=== PATIENT | female | born 1975 | race Caucasian/White ===

== ENCOUNTER 2017-06-25 16:13 | Emergency (ER) | payer SELFPAY ==
[2017-06-25 16:14] VITALS: BP 116/75; PULSE 91; RESP 16; TEMP 36.6; O2SAT 99; BMI 24.9
--- NOTE | 2017-06-25 16:36 | ED.VISSUMM ---
- ER Visit Summary Date of Service: 06/25/17 Chief Complaint: Left knee pain History of Present Illness: The patient is a 42 F presenting with left knee pain. She states this is a chronic issue that has been ongoing for the past 4 years. She states she initially injured her knee playing [employer]. She states she pivoted and has had pain ever since for the last 4 years. She was previously taking gabapentin 600 mg twice daily. She has ran out of this medication last night. She is now taking Aleve with some improvement. Denies new injury. Denies fever or other complaints. Physical Examination: Vitals are stable. Patient is afebrile. Alert no acute distress. HEENT exam is unremarkable. Lungs are clear and equal bilaterally. Heart is regular rate and rhythm. Extremities left knee tenderness diffusely, AFROM. No effusion. No erythema or warmth. NVID. Skin is warm and dry. Remainder of exam is unremarkable. Emergency Department Course and Treatment: Patient is given Toradol IM and ice pack. Left knee x-ray shows no acute process. She is able to ambulate in the emergency department. She is given a prescription for gabapentin. She is advised to follow-up with Dr. Tamayo her primary care physician. Advised return to ED if worsening complaints. Disposition: Discharge home Impression: Acute on chronic left knee pain This note was generated with OpenAir dictation software. It may contain incorrect words, spelling, and punctuation that were not noted in review of the chart prior to signing ED Disposition - Plan for ED Patient: Chief Complaint: Lower Extremity Injury Referrals: Jesse Tamayo MD [Primary Care Provider] -
--- NOTE | 2017-06-25 16:41 | ED.DCSUM_ITS ---
- ER Visit Summary Date of Service: 06/25/17 Chief Complaint: Left knee pain History of Present Illness: The patient is a 42 F presenting with left knee pain. She states this is a chronic issue that has been ongoing for the past 4 years. She states she initially injured her knee playing [employer]. She states she pivoted and has had pain ever since for the last 4 years. She was previously taking gabapentin 600 mg twice daily. She has ran out of this medication last night. She is now taking Aleve with some improvement. Denies new injury. Denies fever or other complaints. Physical Examination: Vitals are stable. Patient is afebrile. Alert no acute distress. HEENT exam is unremarkable. Lungs are clear and equal bilaterally. Heart is regular rate and rhythm. Extremities left knee tenderness diffusely, AFROM. No effusion. No erythema or warmth. NVID. Skin is warm and dry. Remainder of exam is unremarkable. Emergency Department Course and Treatment: Patient is given Toradol IM and ice pack. Left knee x-ray shows no acute process. She is able to ambulate in the emergency department. She is given a prescription for gabapentin. She is advised to follow-up with Dr. Tamayo her primary care physician. Advised return to ED if worsening complaints. Disposition: Discharge home Impression: Acute on chronic left knee pain This note was generated with Nu-Pulse dictation software. It may contain incorrect words, spelling, and punctuation that were not noted in review of the chart prior to signing ED Disposition - Plan for ED Patient: Chief Complaint: Lower Extremity Injury Referrals: Jesse Tamayo MD [Primary Care Provider] -
--- NOTE | 2017-06-25 16:50 | RAD_ITS ---
XR Knee Complete 4 Views or More INDICATION: CHRONIC PAIN COMPARISON: None TECHNIQUE: 4 views of the left knee FINDINGS: The osseous structures are intact and aligned. Joint spaces are preserved. RAD/Knee 4 or More Views IMPRESSION: Negative plain film examination of the left knee. at 1711 Reported and signed by: Adilene Leon MD Electronically Signed: Adilene Leon MD at 16:10 EST Tel , Service support ,
[2017-06-25] MEDS: Ketorolac 60 MG/2 ML Vial IM (17:05)
--- NOTE | 2017-06-25 17:20 | ED.DEP ---
ED Disposition - Plan for ED Patient: Chief Complaint: Lower Extremity Injury Instructions: ED Sprain Knee Prescriptions: Gabapentin [Neurontin] 600 mg PO BIDCM #28 tablet Referrals: Jesse Tamayo MD [Primary Care Provider] -
[2017-06-25 17:34] VITALS: BP 115/86; PULSE 83; RESP 14; O2SAT 99
== END 2017-06-25 17:37 | disposition home or self-care (01) ==
PROVIDERS: Emergency Provider Emergency Medicine; Family Provider Family Medicine; PCP Family Medicine
DX: M25.562 Pain in left knee (principal); G89.29 Other chronic pain; Z72.0 Tobacco use; Z79.899 Other long term (current) drug therapy; Z86.19 Personal history of other infectious and parasitic diseases
CPT/HCPCS: 73564; 96372; 99282

== ENCOUNTER 2017-06-26 21:43 | Emergency (ER) | payer SELFPAY ==
[2017-06-26 21:44] VITALS: BP 151/67; PULSE 135; RESP 16; TEMP 37; O2SAT 97
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
[2017-06-26] MEDS: Ketorolac 60 MG/2 ML Vial IM (23:28)
[2017-06-26] MEDS: Orphenadrine 60 MG/2 ML Ampul IM (23:28)
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
[2017-06-27 01:04] VITALS: PULSE 118; RESP 16; O2SAT 98
== END 2017-06-27 01:04 | disposition home or self-care (01) ==
PROVIDERS: Emergency Provider Emergency Medicine; Family Provider Family Medicine; PCP Family Medicine
DX: S32.049A Unspecified fracture of fourth lumbar vertebra, initial encounter for closed fracture (principal); V89.2XXA Person injured in unspecified motor-vehicle accident, traffic, initial encounter; Y93.9 Activity, unspecified; Y92.9 Unspecified place or not applicable; Y99.9 Unspecified external cause status; Z72.0 Tobacco use
CPT/HCPCS: 72100; 96372; 99283

== ENCOUNTER 2017-10-16 23:46 | Emergency (ER) | payer SELFPAY ==
[2017-10-16 23:47] VITALS: BP 128/70; PULSE 119; RESP 15; TEMP 37; BMI 24.0
--- NOTE | 2017-10-17 00:13 | ED.DCSUM_ITS ---
- ER Visit Summary Date of Service: 10/17/17 Chief Complaint: Cough, scalp pain History of Present Illness: The patient is a 42 F 41 history of mild productive cough. No fevers. Tobacco history. Occasional wheezing secondary tobacco. No chest pains or shortness of breath. Yesterday noted tenderness along the scalp on the right side. Today noted vesicles. Complains of increased stress. Chickenpox as a child. No history of shingles. No allergies. Physical Examination: General: Alert and oriented ?3, no acute distress HEENT: Normocephalic, atraumatic. Vesicular lesions noted right temporoparietal region diffuse, tender to palpation, no active drainage. TMs normal bilaterally. Moist mucosa membranes Neck: supple, nontender. Cardiovascular: Regular rate 96 and rhythm, no murmurs Respiratory: Normal breath sounds, symmetric, no distress Abdomen: Soft, nontender, nondistended Extremities: Nontender, no edema, pulses intact ?4 Neuro: no focal neurological deficits. Test Results: [] Emergency Department Course and Treatment: Patient vital signs stable, lung sounds normal. Discuss viral upper respiratory symptoms. Scalp lesion findings are concerning for shingles. First episode. He started on acyclovir and prednisone. Patient will follow-up with her PCP for reevaluation. Treatment Plan: [] Disposition: Discharge Impression: 1. Right scalp shingles 2. Upper respiratory infection This note was generated with AsicAhead dictation software. It may contain incorrect words, spelling, and punctuation that were not noted in review of the chart prior to signing ED Disposition - Plan for ED Patient: Disposition: Home or Assisted Living Chief Complaint: Itching Diagnosis: Shingles rash, Upper respiratory infection Instructions: ED Shingles, ED URI Viral Prescriptions: Acyclovir [Zovirax] 800 mg PO 5X/DAY #25 tablet Prednisone [Deltasone] 60 mg PO DAILY #15 tablet Referrals: Jesse Tamayo MD [Primary Care Provider] - 3-5 Days
[2017-10-17] MEDS: predniSONE 20 MG Tablet 60 MG PO (00:18)
[2017-10-17] MEDS: Acyclovir 800 MG Tablet PO (00:41)
[2017-10-17 00:43] VITALS: PULSE 94; RESP 15; O2SAT 98
== END 2017-10-17 00:44 | disposition home or self-care (01) ==
PROVIDERS: Emergency Provider Emergency Medicine; Family Provider Family Medicine; PCP Family Medicine
DX: B02.9 Zoster without complications (principal); J06.9 Acute upper respiratory infection, unspecified; Z72.0 Tobacco use
CPT/HCPCS: 99283

== ENCOUNTER 2022-03-24 13:47 | Emergency (ER) | payer MEDICAID, SELFPAY ==
[2022-03-24 13:48] VITALS: BP 128/108; PULSE 66; RESP 18; TEMP 36.7; O2SAT 97; BMI 23.3
--- NOTE | 2022-03-24 14:18 | EX.ED.UPPERE ---
HPI History of Present Illness HPI Narrative: Presents with a wound to her left hand that occurred 2 days ago. Patient states she was washing dishes and a glass she was washing broke and cut her left hand. Patient states she has been keeping it clean. Patient states she has been using Neosporin ointment. Patient states the redness and pain is getting worse. Patient denies any fevers or chills. Patient denies any discharge or drainage. Patient states her pain is worse whenever she bumps it against something. Patient admits to some intermittent numbness and tingling into the left fifth finger. Patient denies any other injuries. Patient is unsure of her last tetanus. Chief Complaint: Wound Informant: patient Occured/Mechanism Comment: Cut on broken glass Onset/Context/Timing Onset: Days (2) Context: Sudden Onset Timing: Continuous Quality of Pain: Burning Location: Left fifth MCP joint Worsened by: Bumping Relieved by: Nothing Associated Symptoms Associated Symptoms: Positive for Parasthesia; Negative for Weakness or Loss of Funtion Narrative Tetanus Immunization: Unknown PFSH PFSH Medical History no medical history no medical history Home Medications gabapentin 600 mg tablet 600 mg PO BIDCM 12/10/15 [History Last Taken Unknown] gabapentin 600 mg tablet 600 mg PO BIDCM #28 tabs 06/25/17 [Rx Last Taken Unknown] oxycodone-acetaminophen 5 mg-325 mg tablet 1 - 2 tab PO Q6H PRN PRN Pain #20 tabs 06/27/17 [Rx Last Taken Unknown] acyclovir 800 mg tablet 800 mg PO 5X/DAY ##25 10/17/17 [Rx Last Taken Unknown] prednisone 20 mg tablet (Deltasone) 60 mg PO DAILY #15 tabs 10/17/17 [Rx Last Taken Unknown] cephalexin 500 mg capsule 500 mg PO Q6 #40 CAPSULES 03/24/22 [Rx Last Taken Unknown] Allergy/AdvReac Type Severity Reaction Status Date / Time No Known Allergies Allergy Verified 03/24/22 13:48 Surgical History no surgical history no surgical history Social History Smoking Status: Current every day smoker ROS ROS ED Constitutional Constitutional ED: Denies chills or fever(s) Eyes Eyes: Denies blurry vision or change in vision ENT ENT ED: Denies rhinorrhea or sore throat Cardiovascular Cardiovascular: Denies chest pain or palpitations Respiratory/Chest Respiratory/Chest: Denies cough or dyspnea Gastrointestinal Gastrointestinal: Denies nausea or vomiting Genitourinary Genitourinary ED: Denies dysuria or hematuria Musculoskeletal Musculoskeletal: Denies back pain or neck pain Integumentary Denies abscess or rash Neurologic Neurologic: Denies headache(s) or weakness Allergic/Immunologic Allergic/Immunologic ED: Denies mouth swelling or urticaria EXAM Physical Exam Const Vital Signs: 03/24/22 13:48 Temperature 98.1 F Temperature Source Temporal Pulse Rate 66 Respiratory Rate 18 Blood Pressure 128/108 H Blood Pressure Mean 114 Pulse Ox 97 Oxygen Delivery Method Room Air Positive well nourished and well developed General Appearance ED: well developed and NAD HEENT Reports moist mucous membranes Neck full ROM Extremity Extremity Narrative: There is a healing laceration of the dorsal aspect of the left fifth MCP joint. There is surrounding erythema and tenderness. There is no discharge or drainage. There is full range of motion of the MCP, PIP, and DIP joints of the left fifth finger. Sensation was intact to light touch in all digits. Capillary refill is less than 2 seconds in all digits. Radial pulses are equal bilaterally. Neuro oriented x3, CN's II-XII intact bilaterally, moves all extremities, no focal motor deficits and no sensory deficits noted Sensorium / Orientation: alert Motor Exam: strength 5/5 throughout MDM MDM MDM Narrative Medical decision making narrative: Patient was given a tetanus booster. Patient was given a dose of Keflex here. Patient was given a prescription for Keflex. Patient was instructed to keep the wound clean and dry. Patient was instructed to continue using Neosporin ointment. Patient was instructed to follow-up with her primary care physician in 5 to 7 days. Patient understood and was agreeable with the plan. All questions were answered. Discharge Plan Triage Chief Complaint: Wound ED Provider: Kaden Driver Dx/Rx/DC Orders Clinical Impression: Infected wound Instructions: ED Wound Check (Infection) Prescriptions: New cephalexin [cephalexin] 500 mg capsule 500 mg PO Q6 Qty: 40 0RF No Action gabapentin 600 MG tablet 600 mg PO BIDCM gabapentin 600 MG tablet 600 mg PO BIDCM Qty: 28 0RF oxycodone-acetaminophen 1 TABLET tablet 1 - 2 tab PO Q6H PRN PRN (Reason: Pain) Qty: 20 0RF prednisone [Deltasone] 20 MG tablet 60 mg PO DAILY Qty: 15 0RF Rx Instructions: With food acyclovir 800 MG tablet 800 mg PO 5X/DAY Qty: 25 0RF Primary Care Provider: Jesse Tamayo Referrals: Jesse Tamayo MD [Primary Care Provider] - 5-7 Days Disposition Disposition: Home, Self Care
[2022-03-24] MEDS: Cephalexin 500 MG Capsule PO (14:32)
[2022-03-24] MEDS: Diphth,Pertuss(Acell),Tet Vac 0.5 ML Vial IM (14:32)
== END 2022-03-24 14:47 | disposition home or self-care (01) ==
LOC: ED 14:45
PROVIDERS: Emergency Provider Emergency Medicine; PCP Family Medicine; Visit Provider Emergency Medicine
DX: S61.412A Laceration without foreign body of left hand, initial encounter (principal); W25.XXXA Contact with sharp glass, initial encounter; F17.200 Nicotine dependence, unspecified, uncomplicated; Z23 Encounter for immunization
CPT/HCPCS: 90715; 99282

== ENCOUNTER 2023-03-07 09:57 | Emergency (ER) | payer MEDICAID, SELFPAY ==
[2023-03-07 09:58] VITALS: BP 129/105; PULSE 103; RESP 16; TEMP 36.4; O2SAT 98; BMI 24.1
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
[2023-03-07] MEDS: Diphth,Pertuss(Acell),Tet Vac 0.5 ML Vial IM (10:28)
[2023-03-07] MEDS: HYDROcodone Bitartrate/Apap 5/325 Tablet PO (10:28)
== END 2023-03-07 11:11 | disposition home or self-care (01) ==
PROVIDERS: Emergency Provider Emergency Medicine; PCP Family Medicine; Visit Provider Emergency Medicine
DX: S62.660B Nondisplaced fracture of distal phalanx of right index finger, initial encounter for open fracture (principal); S61.011A Laceration without foreign body of right thumb without damage to nail, initial encounter; S61.411A Laceration without foreign body of right hand, initial encounter; Z23 Encounter for immunization; W23.0XXA Caught, crushed, jammed, or pinched between moving objects, initial encounter; F17.210 Nicotine dependence, cigarettes, uncomplicated; Z79.52 Long term (current) use of systemic steroids
CPT/HCPCS: 12001; 73130; 90471; 90715; 99284

== ENCOUNTER 2023-03-15 16:08 | Emergency (ER) | payer MEDICAID, SELFPAY ==
[2023-03-15 16:10] VITALS: TEMP 36.6; BMI 24.1
--- NOTE | 2023-03-15 16:13 | ED.RN ---
PT REFUSING TO ANSWER QUESTIONS. STATES SHE DOES NOT KNOW THE ANSWER AND I SHOULD LOOK THINGS UP IN HER CHART
--- NOTE | 2023-03-15 17:02 | NURSING ---
pt. came into triage stating i am waiting on my dishcharge papers, if they bring them out I will be out having a cigarette. This RN stated if the patient was not in the room, she would not get her discharge papers. pt. then left without paperwork.
--- NOTE | 2023-03-15 17:05 | EDS_ITS ---
HPI History of Present Illness Chief Complaint: Suture Remv Narrative Narrative: Patient is a 47-year-old female who is here for suture removal for her right index finger. Patient has been extremely demanding to nursing staff, myself, using foul language, not being pleasant to registration, nursing staff, and myself for unknown reasons. Patient is impatient, she wants her sutures taken out now and does not want a wait for anything else or other patients that are being cared for in the emergency room. Patient had sutures placed approximately 8 days ago, she has 4 sutures placed. Patient had a open fracture to the distal phalanx of the right index finger. Patient has been taking antibiotics. No signs of any other type of acute infection. No other acute complaints. Patient has been intermittently wearing her finger splint. PFSH PFSH Home Medications gabapentin 600 mg tablet 600 mg PO BIDCM 12/10/15 [History Last Taken Unknown] gabapentin 600 mg tablet 600 mg PO BIDCM #28 tabs 06/25/17 [Rx Last Taken Unknown] oxycodone-acetaminophen 5 mg-325 mg tablet 1 - 2 tab PO Q6H PRN PRN Pain #20 tabs 06/27/17 [Rx Last Taken Unknown] acyclovir 800 mg tablet 800 mg PO 5X/DAY ##25 10/17/17 [Rx Last Taken Unknown] prednisone 20 mg tablet (Deltasone) 60 mg (3 x 20 mg) PO DAILY #15 tabs 10/17/17 [Rx Last Taken Unknown] cephalexin 500 mg capsule 500 mg PO Q6 #40 CAPSULES 03/24/22 [Rx Last Taken Unknown] cephalexin 500 mg capsule 500 mg PO Q8H 5 days #15 caps 03/07/23 [Rx Last Taken Unknown] Allergy/AdvReac Type Severity Reaction Status Date / Time No Known Allergies Allergy Verified 03/07/23 09:58 Social History Smoking Status: Current every day smoker tobacco type: cigarettes ROS ROS ED ROS Narrative REVIEW OF SYSTEMS: Unless otherwise stated in this report the patient's positive and negative responses for review of systems for constitutional, eyes, ENT, cardiovascular, respiratory, gastrointestinal, neurological, , musculo skeletal, and integument systems and related systems to the presenting problem are either stated in the history of present illness or were not pertinent or were negative for the symptoms and/or complaints related to the presenting medical problem. EXAM Physical Exam Narrative Exam Narrative: Vital signs reviewed and patient is not hypoxic. General: The patient appears well and in no apparent distress. Patient is resting comfortably on cart. Not toxic, lethargic, or listless. Skin: Warm, dry, no pallor noted. There is no rash noted. Patient's skin has closed and approximated well to the right index finger tuft. No redness, no drainage, no signs of any type of acute abscess. Head: Normocephalic, atraumatic Eye: Normal conjunctiva, no drainage, EOMI. PERRL. Ears, Nose, Mouth, and Throat: oral mucosa is moist. Cardiovascular: Regular Rate and Rhythm, no murmurs, gallops, or rubs Respiratory: Patient is in no distress, no accessory muscle use, lungs are clear to auscultation, no wheezing, rales or rhonchi Musculoskeletal: The patient has full range of motion of all extremities and joints with no difficulty. Patient has no motor, no sensory deficits. Patient still has swelling to the tuft of the right index finger. Patient has dry scab to the tuft of the right index finger, [address] Neurological: A&O x4, normal speech, no focal neurological deficits. Psychiatric: Cooperative Const Vital Signs: 03/15/23 16:10 Temperature 97.8 F Temperature Source Temporal MDM MDM MDM Narrative Medical decision making narrative: Procedure note: Nursing staff was at bedside Latosha BOYER entire history, physical, procedure note, removal of sutures and discharge. 4 sutures were removed without difficulty. No bleeding occurred. Patient would not remain still to have the sutures taken out, she finally did stay still enough to remove sutures. patient had followed language throughout the procedure, cussing, using multiple obscenities for unknown reason. Patient then apologized after the sutures removed, stating she was anxious about the procedure. Pt had odd affect, this is her admitted baseline Patient had bacitracin, Telfa, finger splint, and Kerlix applied to the right index finger. Nurses's note reviewed and patient is not hypoxic. Latosha BOYER was a witness to all of this, and at bedside throughout the entire procedure Discharge Plan Triage Chief Complaint: Suture Remv ED Provider: Sarmad Reyes Dx/Rx/DC Orders Clinical Impression: Visit for suture removal Instructions: Sutr or Stap Removal Prescriptions: No Action gabapentin 600 MG tablet 600 mg PO BIDCM gabapentin 600 MG tablet 600 mg PO BIDCM Qty: 28 0RF oxycodone-acetaminophen 1 TABLET tablet 1 - 2 tab PO Q6H PRN PRN (Reason: Pain) Qty: 20 0RF prednisone [Deltasone] 20 MG tablet 60 mg PO DAILY Qty: 15 0RF Rx Instructions: With food acyclovir 800 MG tablet 800 mg PO 5X/DAY Qty: 25 0RF cephalexin [cephalexin] 500 mg capsule 500 mg PO Q6 Qty: 40 0RF cephalexin 500 mg capsule 500 mg PO Q8H 5 Days Qty: 15 0RF Primary Care Provider: Jesse Tamayo Referrals: Jesse Tamayo MD [Primary Care Provider] - Activity Restrictions/Additional Instructions: Use topical antibiotic ointment 3-4 times a day to help wound healing and prevent infection. Wear splint for the next 2 to 3 weeks. Follow-up with PCP as recommended. Do not have your hand soaked under water for lengthy amount of time for the next 2 to 3 weeks as well Disposition Disposition: Home, Self Care
== END 2023-03-15 17:12 | disposition home or self-care (01) ==
PROVIDERS: Emergency Provider Emergency Medicine; PCP Family Medicine; Visit Provider Emergency Medicine
DX: Z48.02 Encounter for removal of sutures (principal); F17.210 Nicotine dependence, cigarettes, uncomplicated
CPT/HCPCS: 99282

== ENCOUNTER 2023-03-23 19:37 | Emergency (ER) | payer MEDICAID, SELFPAY ==
[2023-03-23 19:39] VITALS: BP 137/96; PULSE 94; RESP 18; TEMP 36.2; O2SAT 99; BMI 25.5
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
== END 2023-03-23 23:15 | disposition home or self-care (01) ==
PROVIDERS: Emergency Provider Emergency Medicine; PCP Family Medicine; Visit Provider Emergency Medicine
DX: S00.33XA Contusion of nose, initial encounter (principal); J44.9 Chronic obstructive pulmonary disease, unspecified; S60.221A Contusion of right hand, initial encounter; S29.9XXA Unspecified injury of thorax, initial encounter; S62.630D Displaced fracture of distal phalanx of right index finger, subsequent encounter for fracture with routine healing; M19.041 Primary osteoarthritis, right hand; Y04.8XXA Assault by other bodily force, initial encounter; F17.210 Nicotine dependence, cigarettes, uncomplicated
CPT/HCPCS: 70450; 70486; 71101; 73130; 99282

== ENCOUNTER 2023-03-29 12:27 | Emergency (ER) | payer MEDICAID, SELFPAY ==
[2023-03-29 12:29] VITALS: BP 129/99; PULSE 105; RESP 22; TEMP 36.1; O2SAT 98; BMI 25.1
--- NOTE | 2023-03-29 12:39 | EDS_ITS ---
HPI <JENNIFER Conley - Last Filed: 03/29/23 13:15> History of Present Illness Chief Complaint: Wound Narrative Narrative: 8-year-old female got a forearm tattoo on 03/25 and was wearing the clear plastic wrap applied by the tattoo shop. She removed it yesterday and the forearm is more red and painful. No drainage. No fever or chills PFSH <JENNIFER Conley - Last Filed: 03/29/23 13:15> PFSH Medical History Hepatitis C Home Medications naproxen 500 mg tablet 500 mg PO BID #14 tabs 03/23/23 [Rx Last Taken Unknown] cephalexin 500 mg capsule 500 mg PO Q6 7 days #28 CAPSULES 03/29/23 [Rx Last Taken Unknown] mupirocin 2 % topical ointment 1 applic topical BID #15 grams 03/29/23 [Rx Last Taken Unknown] Allergy/AdvReac Type Severity Reaction Status Date / Time No Known Allergies Allergy Verified 03/29/23 12:29 Social History Smoking Status: Current every day smoker tobacco type: cigarettes ROS <JENNIFER Conley - Last Filed: 03/29/23 13:15> ROS ED ROS Narrative Constitutional: Negative for fever, chills, malaise. Neuro: Negative for motor/sensory dysfunction. Skin: Positive for wound. Positive for left forearm pain, swelling EXAM <JENNIFER Conley - Last Filed: 03/29/23 13:15> Physical Exam Narrative Exam Narrative: CONST: Patient sitting in no acute distress. EYES: Normal inspection. NECK: Normal inspection. RESP: No respiratory distress, CTAB. CVS: Regular rate and rhythm, no murmur, no gallop. SKIN: Large left Halloween forearm tattoo with extensive black ink. The visible skin in between the ink has abraded skin and the proximal forearm is slightly swollen. Full ROM of all joints, 2+ radial pulse, no fluctuance or crepitus, no lymphangitis. NEURO: Oriented x4. PSYCH: Normal affect. Const Vital Signs: 03/29/23 12:29 Temperature 97 F L Temperature Source Temporal Pulse Rate 105 H Respiratory Rate 22 H Blood Pressure 129/99 H Blood Pressure Mean 109 Pulse Ox 98 Oxygen Delivery Method Room Air <Dr. Toni Rodriguez DO - Last Filed: 03/29/23 13:58> Physical Exam Const Vital Signs: 03/29/23 12:29 Temperature 97 F L Temperature Source Temporal Pulse Rate 105 H Respiratory Rate 22 H Blood Pressure 129/99 H Blood Pressure Mean 109 Pulse Ox 98 Oxygen Delivery Method Room Air [facility] <JENNIFER Conley - Last Filed: 03/29/23 13:15> [facility] Narrative Medical decision making narrative: Patient recently got a left forearm tattoo and has pain and redness. The forearm slightly swollen and there is significant abrasions and slight redness. With her multiple I think there is its hard to tell if this is a traumatic tattoo versus developing cellulitis. There is no signs of abscess and extremity is neurovascularly intact. I prescribed mupirocin ointment and Keflex and discussed return precautions. She was discharged in stable condition. <Dr. Toni Rodriguez, - Last Filed: 03/29/23 13:58> [facility] Narrative Medical decision making narrative: Patient recently got a left forearm tattoo and has pain and redness. The forearm slightly swollen and there is significant abrasions and slight redness. With her multiple I think there is its hard to tell if this is a traumatic tattoo versus developing cellulitis. There is no signs of abscess and extremity is neurovascularly intact. I prescribed mupirocin ointment and Keflex and discussed return precautions. She was discharged in stable condition. I have personally performed a face to face assessment of the patient and have reviewed the [facility] Note. I performed a substantive portion of the visit including all aspects of the following. My hill findings include: History is patient with recent tattoo now noting pain swelling and redness. Patient had a wrap on it wonders if she is allergic to the wrap. Exam is recent tattoo of the left forearm. There is some mild erythema some mild swelling and tenderness. Patient has a very dramatic affect. There are some sharp demarcation of erythema away from the tattoo where the wrap and tape was located. No obvious abscess. No lymphangitic streaking. Patient is nontoxic. Medical Decison Making I will recommend the patient take some Benadryl for possible allergy to the wrap/tape. We will also write for some Keflex for possibility of infected tattoo. Would recommend follow-up and using Tylenol/naproxen for pain. Monitoring for worsening and return if needed Discharge Plan Triage Chief Complaint: Wound ED Midlevel Provider: Lucy Templeton ED Provider: Toni Rodriguez Dx/Rx/DC Orders Clinical Impression: Open wound of left forearm, Cellulitis of arm, left Instructions: Cellulitis, ED Abrasion Prescriptions: New cephalexin 500 mg capsule 500 mg PO Q6 7 Days Qty: 28 0RF mupirocin 2 % ointment 1 applic topical BID Qty: 15 0RF No Action naproxen 500 mg tablet 500 mg PO BID Qty: 14 0RF Primary Care Provider: Jesse Tamayo Referrals: Jesse Tamayo MD [Primary Care Provider] - Activity Restrictions/Additional Instructions: Keep clean and apply ointment with clean hands. This could take several weeks to fully heal, but if symptoms worsen please be reevaluated. This includes redness, swelling, pus, or fever. Disposition Disposition: Home, Self Care Discharge Date/Time: 03/29/23 13:34
[2023-03-29] MEDS: Cephalexin 250 MG Capsule 500 MG PO (13:25)
[2023-03-29] MEDS: Naproxen 250 MG Tablet 500 MG PO (13:25)
== END 2023-03-29 13:34 | disposition home or self-care (01) ==
LOC: ED 13:30
PROVIDERS: Emergency Provider Emergency Medicine; PCP Family Medicine; Visit Provider Emergency Medicine
DX: L03.114 Cellulitis of left upper limb (principal); S50.812A Abrasion of left forearm, initial encounter; X58.XXXA Exposure to other specified factors, initial encounter; F17.210 Nicotine dependence, cigarettes, uncomplicated; L81.8 Other specified disorders of pigmentation
CPT/HCPCS: 99282